=== PATIENT | female | born 1970 | race American Indian/Alaskan Native ===

== ENCOUNTER 2017-08-16 01:45 | Emergency (ER) | payer MEDICAID ==
[2017-08-16 01:49] VITALS: BP 108/72
== END 2017-08-16 06:00 | disposition left against medical advice (07) ==
LOC: ED 01:45
DX: J02.9 Acute pharyngitis, unspecified (principal); Z53.21 Procedure and treatment not carried out due to patient leaving prior to being seen by health care provider
CPT/HCPCS: 87116; 87430